=== PATIENT | female | born 1950 | race Caucasian/White ===

== ENCOUNTER 2016-08-17 12:59 | Outpatient (CLI) | payer OTHER ==
--- NOTE | 2016-08-17 15:36 | DIAGNOSTIC IMAGING REPORT ---
PROCEDURE: CT LUMBOSACRAL FACET INJ B/L CLINICAL INDICATION: CHRONIC LOWER BACK PAIN WITHOUT SCIATICA TECHNIQUE: Informed consent was obtained and the patient was advised of the usual risks and complications, including infection, bleeding, and allergy. The patient was on Plavix, and while there is a slightly increased risk of bleeding, the overall risk is felt to be minimal. Prone position. COMPARISON: Comparison is made to CT guided lumbar facet injection study on 12/30/2015 (bilateral L4-5 and L5-S1 levels). FINDINGS: Preliminary CT images demonstrate marked degenerative changes of the L4-5 and L5-S1 facet joints, most pronounced on the left at L5-S1. Bilateral L4-5 facet joints: Following sterile preparation and 1% lidocaine local anesthetic, CT guidance was utilized to place 22-gauge spinal needles in the posterior aspect of the bilateral L4-5 facet joints (after some difficulty). A 1.1 mL solution (1 mL 40 mg/mL Kenalog, 0.1 mL 1% lidocaine) was infused into each facet joint, and the needles were withdrawn. Bilateral L5-S1 facet joints: Following sterile preparation 1% lidocaine local anesthetic, CT guidance was utilized to place 22-gauge spinal needles in the posterior aspect of bilateral L5-S1 facet joints (after some difficulty). A 1.1 solution (1 ml 40 mg/ml Kenalog, 0.1 ml 1% lidocaine) was infused into each facet joint, and the needles were withdrawn. The patient was instructed to resume routine activity the following day and to keep track of symptoms. IMPRESSION: 1. Successful CT -guided therapeutic injection of the bilateral L4-5 facet [address] guided therapeutic injection of bilateral L5-S1 facet joints. All CT scans at this facility use dose modulation, iterative reconstruction, and/or weight-based dosing when appropriate to reduce radiation dose to as low as reasonably achievable.
== END 2016-08-17 23:00 ==
LOC: CT SRH 12:59
PROC: 3E0U33Z Introduction of Anti-inflammatory into Joints, Percutaneous Approach (ICD-10-PCS; principal; 2016-08-17)
DX: M54.5 Low back pain (principal); Z01.812 Encounter for preprocedural laboratory examination
CPT/HCPCS: 82445; 90074; 94060; 95130